=== PATIENT | female | born 1940 | race Caucasian/White ===

== ENCOUNTER 2017-12-13 12:25 | Inpatient (IN) | payer MEDICARE, MEDICAID ==
[~2017-12-13] VITALS: Ht 167.6 cm; Wt 54.0 kg
[~2017-12-13 12:25] MED LIST: CEPH-571 PO; K, MAG and/or Phos replacement - Verify level? MC SCH
[2017-12-13] MEDS ORDERED: HYDROcodone/acetaminophen 10/325mg tab PO ONE ×2 (12:45→18:35)
[2017-12-13] MEDS ORDERED: ondansetron 4mg rapidly disintigrating tab PO ONE (12:45)
[2017-12-13] MEDS ORDERED: aspirin 81mg tab.chew PO ONE (13:30)
[2017-12-13 13:54] LABS: BASOPHILS % (AUTO) 0.1 % (0-1); EOSINOPHILS # (AUTO) 0.2 X10'3 (0-0.9); EOSINOPHILS % (AUTO) 1.2 % (0-6); HEMATOCRIT 44.2 % (35.0-45.0); HEMOGLOBIN 15.1 g/dl (12.0-16.0); LYMPHOCYTES # (AUTO) 0.5 X10'3 (1.1-4.8); LYMPHOCYTES % (AUTO) 3.8 % (21-51); MEAN CORPUSCULAR HEMOGLOBIN 28.8 PG (27.0-31.0); MEAN CORPUSCULAR VOLUME 84.7 FL (78-98); MEAN PLATELET VOLUME 6.6 FL (7.4-10.4); MONOCYTES # (AUTO) 0.4 X10'3 (0-0.9); MONOCYTES % (AUTO) 2.7 % (2-12); NEUTROPHILS % (AUTO) 92.2 % (42-75); PLATELET COUNT 364 X10'3 (140-440); RED BLOOD COUNT 5.22 X10'6 (4.20-5.60); RED CELL DISTRIBUTION WIDTH 15.4 % (11.5-14.5); WHITE BLOOD COUNT 14.1 X10'3 (4.5-11.0)
[2017-12-13] MEDS ORDERED: SYN0.088T PO (14:17)
[2017-12-13] MEDS ORDERED: ESCI5TAB12 PO (14:17)
[2017-12-13] MEDS ORDERED: OMEP40CA37 PO (14:17)
[2017-12-13] MEDS ORDERED: GABA-534 PO (14:17)
[2017-12-13] MEDS ORDERED: PARO20TA6 PO (14:17)
[2017-12-13] MEDS ORDERED: METF500T PO (14:17)
[2017-12-13] MEDS ORDERED: ALPR-624 PO (14:17)
[2017-12-13] MEDS ORDERED: PRAV20TA4 PO (14:17)
[2017-12-13] MEDS ORDERED: ANAS1TAB10 PO (14:17)
[2017-12-13] MEDS ORDERED: LISI-600 PO (14:17)
[2017-12-13 15:19] LABS: ALANINE AMINOTRANSFERASE 19 U/L (12-78); ALBUMIN 4.3 G/DL (3.4-5.0); ALBUMIN/GLOBULIN RATIO 1.1 (1.1-1.5); ALKALINE PHOSPHATASE 78 IU/L (46-116); ANION GAP 13 (8-16); ASPARTATE AMINO TRANSFERASE 28 U/L (10-37); BILIRUBIN,TOTAL 0.5 MG/DL (0.1-1.0); BLOOD UREA NITROGEN 9 MG/DL (7-18); BUN/CREATININE RATIO 10.8 (6.6-38.0); CHLORIDE 90 MMOL/L (99-107); CREATININE 0.83 MG/DL (0.40-0.90); GLUCOSE 153 MG/DL (70-104); MAGNESIUM 1.5 MG/DL (1.5-2.4); POTASSIUM 3.7 MMOL/L (3.5-5.1); SODIUM 130 MMOL/L (135-145); TOTAL CARBON DIOXIDE 27.3 MMOL/L (24-32); TOTAL PROTEIN 8.2 G/DL (6.4-8.2); eGFR 66 ML/MIN
[2017-12-13] MEDS: tirofiban 5mg in NS 100mL 100 ML IV SCH ×2 (16:16→22:24)
[2017-12-13] MEDS ORDERED: nitroGLYCERIN 0.4mg SUBLingual tab SL PRN (17:15)
[2017-12-13] MEDS ORDERED: morphine 2 MG/ML inj. syringe IV PRN ×2 (18:20)
[2017-12-13] MEDS ORDERED: magnesium hydroxide 30ml (MOM) UD suspension PO PRN (18:20)
[2017-12-13] MEDS ORDERED: acetaminophen 325mg tablet PO PRN ×2 (18:20)
[2017-12-13] MEDS ORDERED: potassium Cl 20 mEq SR tablet PO PRN ×2 (18:20)
[2017-12-13] MEDS ORDERED: ondansetron/PF 4mg/2ml inj IV ONE (18:35)
[2017-12-13] MEDS: normal saline 1000ml 1,000 ML IV SCH ×2 (18:50→23:10)
[2017-12-13] MEDS ORDERED: metoprolol tartrate 50mg tablet PO SCH (20:00)
[2017-12-13 20:30] VITALS: BP 116/73
[2017-12-13] MEDS: cephalexin 250mg capsule PO SCH (21:00)
[2017-12-13] MEDS: docusate sod 100mg capsule PO SCH (22:00)
[2017-12-13] MEDS: ondansetron/PF 4mg/2ml inj IV PRN (22:33)
[2017-12-13] MEDS: ALPRAZolam 0.5mg tablet PO SCH (23:11)
[2017-12-13] MEDS: gabapentin 400mg capsule PO SCH (23:11)
[2017-12-14] VITALS (14 sets, daily range): BP systolic 101–148; BP diastolic 51–78
[2017-12-14 01:50] LABS: ALANINE AMINOTRANSFERASE 21 U/L (12-78); ALBUMIN 3.5 G/DL (3.4-5.0); ALBUMIN/GLOBULIN RATIO 1.1 (1.1-1.5); ALKALINE PHOSPHATASE 64 IU/L (46-116); ANION GAP 13 (8-16); ASPARTATE AMINO TRANSFERASE 28 U/L (10-37); BILIRUBIN,TOTAL 0.5 MG/DL (0.1-1.0); BLOOD UREA NITROGEN 13 MG/DL (7-18); BUN/CREATININE RATIO 21.7 (6.6-38.0); CALCIUM 8.4 MG/DL (8.5-10.1); CHLORIDE 91 MMOL/L (99-107); GLUCOSE 126 MG/DL (70-104); POTASSIUM 3.7 MMOL/L (3.5-5.1); SODIUM 127 MMOL/L (135-145); TOTAL CARBON DIOXIDE 22.8 MMOL/L (24-32); TOTAL PROTEIN 6.8 G/DL (6.4-8.2); eGFR > 90 ML/MIN
[2017-12-14 02:13] LABS: BASOPHILS % (AUTO) 0.1 % (0-1); EOSINOPHILS # (AUTO) 0.1 X10'3 (0-0.9); EOSINOPHILS % (AUTO) 0.8 % (0-6); HEMATOCRIT 39.5 % (35.0-45.0); HEMOGLOBIN 13.6 g/dl (12.0-16.0); LYMPHOCYTES # (AUTO) 1.1 X10'3 (1.1-4.8); LYMPHOCYTES % (AUTO) 8.9 % (21-51); MEAN CORPUSCULAR HEMOGLOBIN 28.9 PG (27.0-31.0); MEAN CORPUSCULAR HGB CONC 34.3 % (33.0-36.5); MEAN CORPUSCULAR VOLUME 84.3 FL (78-98); MEAN PLATELET VOLUME 7.6 FL (7.4-10.4); MONOCYTES # (AUTO) 0.7 X10'3 (0-0.9); MONOCYTES % (AUTO) 5.7 % (2-12); NEUTROPHILS # (AUTO) 10.1 X10'3 (1.8-7.7); NEUTROPHILS % (AUTO) 84.5 % (42-75); PLATELET COUNT 300 X10'3 (140-440); RED BLOOD COUNT 4.69 X10'6 (4.20-5.60); RED CELL DISTRIBUTION WIDTH 14.9 % (11.5-14.5)
[2017-12-14] MEDS: ondansetron/PF 4mg/2ml inj IV PRN ×2 (05:41→20:41)
[2017-12-14] MEDS: HYDROcodone/acetaminophen 10/325mg tab PO PRN ×3 (06:29→21:04)
[2017-12-14] MEDS: anastrozole 1 MG tablet PO SCH ×2 (08:00→10:19)
[2017-12-14] MEDS: PARoxetine 20mg tablet PO SCH ×2 (08:00→10:18)
[2017-12-14] MEDS ORDERED: non-formulary drug (Escitalopram Oxalate 1 TAB) PO SCH (08:00)
[2017-12-14] MEDS ORDERED: pantoprazole 40 MG vial IV SCH (08:00)
[2017-12-14 09:52] LABS: CHOLESTEROL 154 MG/DL (0-200); HDL CHOLESTEROL 78 MG/DL (35-60); LDL CHOLESTEROL 65 MG/DL (50-100); TRIGLYCERIDES 76 MG/DL (20-135)
[2017-12-14] MEDS ORDERED: CITALOpram 10mg tablet PO SCH (09:58)
[2017-12-14] MEDS ORDERED: CITALOpram 10mg tablet PO ONE (10:00)
[2017-12-14] MEDS: pantoprazole 40mg Tablet.DR PO SCH (10:13)
[2017-12-14] MEDS: cephalexin 250mg capsule PO SCH ×3 (10:14→20:42)
[2017-12-14] MEDS: docusate sod 100mg capsule PO SCH ×2 (10:14→20:41)
[2017-12-14] MEDS: lisinopril 20mg tablet PO SCH (10:15)
[2017-12-14] MEDS: ALPRAZolam 0.5mg tablet PO SCH ×2 (10:15→16:00)
[2017-12-14] MEDS: atorvastatin 10mg tablet PO SCH (10:15)
[2017-12-14] MEDS: levoTHYROXINE 88mcg tablet PO SCH (10:15)
[2017-12-14] MEDS: aspirin 81mg tab.chew PO SCH (10:16)
[2017-12-14] MEDS: gabapentin 400mg capsule PO SCH ×2 (10:16→16:00)
[2017-12-14] MEDS ORDERED: ondansetron/PF 4mg/2ml inj IV PRN (11:30)
[2017-12-14] MEDS ORDERED: proMETHazine 25mg tablet PO PRN (11:30)
[2017-12-14] MEDS: normal saline 1000ml 1,000 ML IV SCH (11:56)
[2017-12-14] MEDS ORDERED: fentaNYL/PF 50MCG/1 ML 2ML syringe ONE (15:59)
[2017-12-14] MEDS ORDERED: LIDOcaine 1% 30ml vial 30 ML ONE (15:59)
[2017-12-14] MEDS ORDERED: midazolam 2 mg/2 ml injection ONE (15:59)
[2017-12-14] MEDS ORDERED: iohexol 350MG/ML 100ml bottle IV ONE (16:00)
[2017-12-14] MEDS ORDERED: ondansetron/PF 4mg/2ml inj ONE (16:28)
[2017-12-14] MEDS ORDERED: proCHLORperazine 10 MG/2 ml inj IV PRN (17:20)
[2017-12-14] MEDS ORDERED: HYDROcodone/acetaminophen 5mg/325mg tablet PO PRN (17:20)
[2017-12-14] MEDS ORDERED: OXAZEpam 15mg capsule PO PRN (17:20)
[2017-12-14] MEDS: carVEDilol 12.5mg tablet PO SCH (20:42)
[2017-12-14] MEDS: lactobacillus rhamnosus 10,000 MMU CELLS/CAPSULE PO SCH (20:42)
[2017-12-15] MEDS: gabapentin 400mg capsule PO SCH ×3 (00:08→16:11)
[2017-12-15] MEDS: ALPRAZolam 0.5mg tablet PO SCH ×2 (00:09→09:16)
[2017-12-15 03:00] VITALS: BP 93/48
[2017-12-15 05:11] LABS: BASOPHILS % (AUTO) 0.4 % (0-1); EOSINOPHILS # (AUTO) 0.1 X10'3 (0-0.9); EOSINOPHILS % (AUTO) 1.4 % (0-6); HEMATOCRIT 37.7 % (35.0-45.0); LYMPHOCYTES # (AUTO) 0.8 X10'3 (1.1-4.8); LYMPHOCYTES % (AUTO) 7.8 % (21-51); MEAN CORPUSCULAR HGB CONC 34.6 % (33.0-36.5); MEAN CORPUSCULAR VOLUME 83.9 FL (78-98); MEAN PLATELET VOLUME 7.4 FL (7.4-10.4); MONOCYTES # (AUTO) 0.8 X10'3 (0-0.9); MONOCYTES % (AUTO) 7.9 % (2-12); NEUTROPHILS # (AUTO) 8.3 X10'3 (1.8-7.7); NEUTROPHILS % (AUTO) 82.5 % (42-75); PLATELET COUNT 260 X10'3 (140-440); WHITE BLOOD COUNT 10.1 X10'3 (4.5-11.0)
[2017-12-15 05:36] LABS: ALANINE AMINOTRANSFERASE 17 U/L (12-78); ALBUMIN/GLOBULIN RATIO 0.9 (1.1-1.5); ALKALINE PHOSPHATASE 55 IU/L (46-116); ANION GAP 10 (8-16); ASPARTATE AMINO TRANSFERASE 20 U/L (10-37); BILIRUBIN,TOTAL 0.8 MG/DL (0.1-1.0); BLOOD UREA NITROGEN 11 MG/DL (7-18); CALCIUM 8.2 MG/DL (8.5-10.1); CHLORIDE 96 MMOL/L (99-107); CREATININE 0.58 MG/DL (0.40-0.90); GLUCOSE 135 MG/DL (70-104); POTASSIUM 4.1 MMOL/L (3.5-5.1); SODIUM 130 MMOL/L (135-145); TOTAL CARBON DIOXIDE 23.6 MMOL/L (24-32); TOTAL PROTEIN 6.2 G/DL (6.4-8.2); eGFR > 90 ML/MIN
[2017-12-15 06:00] VITALS: BP 119/69
[2017-12-15] MEDS: HYDROcodone/acetaminophen 10/325mg tab PO PRN ×2 (09:00→13:03)
[2017-12-15] MEDS: pantoprazole 40mg Tablet.DR PO SCH (09:12)
[2017-12-15] MEDS: docusate sod 100mg capsule PO SCH ×2 (09:14→21:03)
[2017-12-15] MEDS: CITALOpram 10mg tablet PO SCH (09:14)
[2017-12-15] MEDS: carVEDilol 12.5mg tablet PO SCH ×2 (09:15→20:00)
[2017-12-15] MEDS: cephalexin 250mg capsule PO SCH ×4 (09:15→21:03)
[2017-12-15] MEDS: PARoxetine 20mg tablet PO SCH (09:15)
[2017-12-15] MEDS: lactobacillus rhamnosus 10,000 MMU CELLS/CAPSULE PO SCH ×2 (09:15→21:03)
[2017-12-15] MEDS: levoTHYROXINE 88mcg tablet PO SCH (09:15)
[2017-12-15] MEDS: atorvastatin 10mg tablet PO SCH (09:15)
[2017-12-15] MEDS: lisinopril 20mg tablet PO SCH (09:16)
[2017-12-15] MEDS: aspirin 81mg tab.chew PO SCH (09:16)
[2017-12-15] MEDS: anastrozole 1 MG tablet PO SCH (09:19)
[2017-12-15] MEDS: normal saline 1000ml 1,000 ML IV SCH ×2 (10:16→11:55)
[2017-12-15 15:16] VITALS: BP 88/58
[2017-12-15] MEDS ORDERED: ALPRAZolam 0.25mg tablet PO PRN (15:30)
[2017-12-15 19:00] VITALS: BP 102/57
[2017-12-15 23:00] VITALS: BP 103/53
[2017-12-16] VITALS (7 sets, daily range): BP systolic 93–124; BP diastolic 46–70
[2017-12-16] MEDS: gabapentin 400mg capsule PO SCH ×3 (00:30→17:01)
[2017-12-16 05:28] LABS: BASOPHILS % (AUTO) 0.2 % (0-1); EOSINOPHILS # (AUTO) 0.2 X10'3 (0-0.9); EOSINOPHILS % (AUTO) 2.5 % (0-6); HEMATOCRIT 35.4 % (35.0-45.0); HEMOGLOBIN 11.8 g/dl (12.0-16.0); LYMPHOCYTES # (AUTO) 0.6 X10'3 (1.1-4.8); LYMPHOCYTES % (AUTO) 8.3 % (21-51); MEAN CORPUSCULAR HEMOGLOBIN 28.4 PG (27.0-31.0); MEAN CORPUSCULAR HGB CONC 33.5 % (33.0-36.5); MEAN CORPUSCULAR VOLUME 84.7 FL (78-98); MEAN PLATELET VOLUME 7.5 FL (7.4-10.4); MONOCYTES # (AUTO) 0.6 X10'3 (0-0.9); MONOCYTES % (AUTO) 8.2 % (2-12); NEUTROPHILS # (AUTO) 6.2 X10'3 (1.8-7.7); NEUTROPHILS % (AUTO) 80.8 % (42-75); PLATELET COUNT 217 X10'3 (140-440); RED BLOOD COUNT 4.17 X10'6 (4.20-5.60); RED CELL DISTRIBUTION WIDTH 15.1 % (11.5-14.5); WHITE BLOOD COUNT 7.7 X10'3 (4.5-11.0)
[2017-12-16 05:59] LABS: ALANINE AMINOTRANSFERASE 16 U/L (12-78); ALBUMIN 2.4 G/DL (3.4-5.0); ALBUMIN/GLOBULIN RATIO 0.8 (1.1-1.5); ALKALINE PHOSPHATASE 53 IU/L (46-116); ANION GAP 8 (8-16); ASPARTATE AMINO TRANSFERASE 18 U/L (10-37); BILIRUBIN,TOTAL 0.5 MG/DL (0.1-1.0); BLOOD UREA NITROGEN 11 MG/DL (7-18); BUN/CREATININE RATIO 17.7 (6.6-38.0); CALCIUM 7.8 MG/DL (8.5-10.1); CHLORIDE 99 MMOL/L (99-107); CREATININE 0.62 MG/DL (0.40-0.90); GLUCOSE 142 MG/DL (70-104); POTASSIUM 4.1 MMOL/L (3.5-5.1); SODIUM 132 MMOL/L (135-145); TOTAL CARBON DIOXIDE 24.9 MMOL/L (24-32); TOTAL PROTEIN 5.6 G/DL (6.4-8.2); eGFR > 90 ML/MIN
[2017-12-16] MEDS: cephalexin 250mg capsule PO SCH ×4 (09:14→21:00)
[2017-12-16] MEDS: docusate sod 100mg capsule PO SCH ×3 (09:15→21:01)
[2017-12-16] MEDS: PARoxetine 20mg tablet PO SCH (09:15)
[2017-12-16] MEDS: levoTHYROXINE 88mcg tablet PO SCH (09:15)
[2017-12-16] MEDS: lisinopril 20mg tablet PO SCH (09:16)
[2017-12-16] MEDS: CITALOpram 10mg tablet PO SCH (09:16)
[2017-12-16] MEDS: carVEDilol 12.5mg tablet PO SCH ×2 (09:16→21:00)
[2017-12-16] MEDS: lactobacillus rhamnosus 10,000 MMU CELLS/CAPSULE PO SCH ×2 (09:16→21:01)
[2017-12-16] MEDS: aspirin 81mg tab.chew PO SCH (09:16)
[2017-12-16] MEDS: atorvastatin 10mg tablet PO SCH (09:17)
[2017-12-16] MEDS: anastrozole 1 MG tablet PO SCH (09:17)
[2017-12-16] MEDS: pantoprazole 40mg Tablet.DR PO SCH (09:24)
[2017-12-16] MEDS: HYDROcodone/acetaminophen 10/325mg tab PO PRN ×3 (09:55→21:04)
[2017-12-16] MEDS: normal saline 1000ml 1,000 ML IV SCH (13:33)
[2017-12-16] MEDS ORDERED: magnesium citrate 296ml oral solution PO ONE (17:05)
[2017-12-16] MEDS ORDERED: morphine 4 MG/ML inj SYRINge IV PRN ×2 (21:55→21:56)
[2017-12-17] VITALS (7 sets, daily range): BP systolic 80–148; BP diastolic 41–83
[2017-12-17] MEDS: gabapentin 400mg capsule PO SCH ×4 (00:33→23:22)
[2017-12-17] MEDS: normal saline 1000ml 1,000 ML IV SCH ×2 (00:35→15:54)
[2017-12-17 05:27] LABS: BASOPHILS % (AUTO) 0.3 % (0-1); EOSINOPHILS # (AUTO) 0.3 X10'3 (0-0.9); EOSINOPHILS % (AUTO) 3.8 % (0-6); HEMATOCRIT 32.2 % (35.0-45.0); HEMOGLOBIN 10.9 g/dl (12.0-16.0); LYMPHOCYTES # (AUTO) 0.5 X10'3 (1.1-4.8); LYMPHOCYTES % (AUTO) 6.1 % (21-51); MEAN CORPUSCULAR HEMOGLOBIN 28.6 PG (27.0-31.0); MEAN CORPUSCULAR HGB CONC 33.9 % (33.0-36.5); MEAN CORPUSCULAR VOLUME 84.4 FL (78-98); MEAN PLATELET VOLUME 7.4 FL (7.4-10.4); MONOCYTES # (AUTO) 0.5 X10'3 (0-0.9); MONOCYTES % (AUTO) 6.6 % (2-12); NEUTROPHILS # (AUTO) 6.9 X10'3 (1.8-7.7); NEUTROPHILS % (AUTO) 83.2 % (42-75); PLATELET COUNT 216 X10'3 (140-440); RED BLOOD COUNT 3.82 X10'6 (4.20-5.60); RED CELL DISTRIBUTION WIDTH 15.1 % (11.5-14.5); WHITE BLOOD COUNT 8.3 X10'3 (4.5-11.0)
[2017-12-17 05:55] LABS: ALANINE AMINOTRANSFERASE 17 U/L (12-78); ALBUMIN 2.3 G/DL (3.4-5.0); ALBUMIN/GLOBULIN RATIO 0.8 (1.1-1.5); ALKALINE PHOSPHATASE 59 IU/L (46-116); ANION GAP 10 (8-16); ASPARTATE AMINO TRANSFERASE 18 U/L (10-37); BILIRUBIN,TOTAL 0.6 MG/DL (0.1-1.0); BLOOD UREA NITROGEN 11 MG/DL (7-18); BUN/CREATININE RATIO 19.3 (6.6-38.0); CALCIUM 7.8 MG/DL (8.5-10.1); CHLORIDE 98 MMOL/L (99-107); CREATININE 0.57 MG/DL (0.40-0.90); GLUCOSE 137 MG/DL (70-104); POTASSIUM 4.4 MMOL/L (3.5-5.1); SODIUM 132 MMOL/L (135-145); TOTAL CARBON DIOXIDE 23.9 MMOL/L (24-32); TOTAL PROTEIN 5.3 G/DL (6.4-8.2); eGFR > 90 ML/MIN
[2017-12-17] MEDS: aspirin 81mg tab.chew PO SCH (07:51)
[2017-12-17] MEDS: atorvastatin 10mg tablet PO SCH (07:51)
[2017-12-17] MEDS: pantoprazole 40mg Tablet.DR PO SCH (07:51)
[2017-12-17] MEDS: carVEDilol 12.5mg tablet PO SCH ×2 (07:51→19:09)
[2017-12-17] MEDS: CITALOpram 10mg tablet PO SCH (07:51)
[2017-12-17] MEDS: levoTHYROXINE 88mcg tablet PO SCH (07:51)
[2017-12-17] MEDS: PARoxetine 20mg tablet PO SCH (07:52)
[2017-12-17] MEDS: lactobacillus rhamnosus 10,000 MMU CELLS/CAPSULE PO SCH ×2 (07:52→19:09)
[2017-12-17] MEDS: cephalexin 250mg capsule PO SCH ×4 (07:52→19:09)
[2017-12-17] MEDS: lisinopril 20mg tablet PO SCH (07:52)
[2017-12-17] MEDS: docusate sod 100mg capsule PO SCH ×2 (08:00→19:09)
[2017-12-17] MEDS: HYDROcodone/acetaminophen 10/325mg tab PO PRN ×4 (08:01→23:22)
[2017-12-17] MEDS: anastrozole 1 MG tablet PO SCH (08:05)
[2017-12-18 03:00] VITALS: BP 110/65
[2017-12-18] MEDS: normal saline 1000ml 1,000 ML IV SCH ×2 (04:25→23:57)
[2017-12-18 05:41] LABS: BASOPHILS % (AUTO) 0.5 % (0-1); EOSINOPHILS # (AUTO) 0.4 X10'3 (0-0.9); EOSINOPHILS % (AUTO) 5.9 % (0-6); HEMATOCRIT 31.1 % (35.0-45.0); HEMOGLOBIN 10.7 g/dl (12.0-16.0); LYMPHOCYTES # (AUTO) 0.7 X10'3 (1.1-4.8); LYMPHOCYTES % (AUTO) 9.5 % (21-51); MEAN CORPUSCULAR HGB CONC 34.3 % (33.0-36.5); MEAN CORPUSCULAR VOLUME 84.5 FL (78-98); MEAN PLATELET VOLUME 7.4 FL (7.4-10.4); MONOCYTES # (AUTO) 0.6 X10'3 (0-0.9); MONOCYTES % (AUTO) 8.9 % (2-12); NEUTROPHILS # (AUTO) 5.3 X10'3 (1.8-7.7); NEUTROPHILS % (AUTO) 75.2 % (42-75); PLATELET COUNT 256 X10'3 (140-440); RED BLOOD COUNT 3.68 X10'6 (4.20-5.60); RED CELL DISTRIBUTION WIDTH 15.1 % (11.5-14.5); WHITE BLOOD COUNT 7.1 X10'3 (4.5-11.0)
[2017-12-18 06:06] LABS: ALANINE AMINOTRANSFERASE 21 U/L (12-78); ALBUMIN 2.2 G/DL (3.4-5.0); ALBUMIN/GLOBULIN RATIO 0.7 (1.1-1.5); ALKALINE PHOSPHATASE 57 IU/L (46-116); ANION GAP 9 (8-16); ASPARTATE AMINO TRANSFERASE 14 U/L (10-37); BILIRUBIN,TOTAL 0.4 MG/DL (0.1-1.0); BLOOD UREA NITROGEN 10 MG/DL (7-18); BUN/CREATININE RATIO 16.9 (6.6-38.0); CALCIUM 7.7 MG/DL (8.5-10.1); CHLORIDE 101 MMOL/L (99-107); CREATININE 0.59 MG/DL (0.40-0.90); GLUCOSE 119 MG/DL (70-104); POTASSIUM 4.4 MMOL/L (3.5-5.1); SODIUM 133 MMOL/L (135-145); TOTAL PROTEIN 5.2 G/DL (6.4-8.2); eGFR > 90 ML/MIN
[2017-12-18 06:53] VITALS: BP 93/58
[2017-12-18] MEDS: levoTHYROXINE 88mcg tablet PO SCH (07:55)
[2017-12-18] MEDS: PARoxetine 20mg tablet PO SCH (07:55)
[2017-12-18] MEDS: pantoprazole 40mg Tablet.DR PO SCH (07:56)
[2017-12-18] MEDS: docusate sod 100mg capsule PO SCH ×2 (07:56→19:18)
[2017-12-18] MEDS: cephalexin 250mg capsule PO SCH ×4 (07:56→23:18)
[2017-12-18] MEDS: atorvastatin 10mg tablet PO SCH (07:56)
[2017-12-18] MEDS: lactobacillus rhamnosus 10,000 MMU CELLS/CAPSULE PO SCH ×2 (07:56→19:18)
[2017-12-18] MEDS: aspirin 81mg tab.chew PO SCH (07:56)
[2017-12-18] MEDS: CITALOpram 10mg tablet PO SCH (07:56)
[2017-12-18] MEDS: lisinopril 20mg tablet PO SCH (07:57)
[2017-12-18] MEDS: carVEDilol 12.5mg tablet PO SCH ×2 (07:59→20:00)
[2017-12-18] MEDS: HYDROcodone/acetaminophen 10/325mg tab PO PRN ×3 (08:04→23:31)
[2017-12-18] MEDS: gabapentin 400mg capsule PO SCH ×3 (08:04→23:20)
[2017-12-18] MEDS: anastrozole 1 MG tablet PO SCH (08:05)
[2017-12-18 11:00] VITALS: BP 127/78
[2017-12-18 15:00] VITALS: BP 157/82
[2017-12-18] MEDS: ondansetron/PF 4mg/2ml inj IV PRN (17:50)
[2017-12-18 18:00] VITALS: BP 146/85
[2017-12-18 22:00] VITALS: BP 144/81
[2017-12-19 02:00] VITALS: BP 121/67
[2017-12-19 05:39] LABS: BASOPHILS % (AUTO) 0.3 % (0-1); EOSINOPHILS # (AUTO) 0.2 X10'3 (0-0.9); HEMATOCRIT 33.4 % (35.0-45.0); HEMOGLOBIN 11.1 g/dl (12.0-16.0); LYMPHOCYTES # (AUTO) 0.7 X10'3 (1.1-4.8); MEAN CORPUSCULAR HEMOGLOBIN 28.2 PG (27.0-31.0); MEAN CORPUSCULAR HGB CONC 33.2 % (33.0-36.5); MEAN CORPUSCULAR VOLUME 84.9 FL (78-98); MEAN PLATELET VOLUME 7.3 FL (7.4-10.4); MONOCYTES # (AUTO) 0.7 X10'3 (0-0.9); MONOCYTES % (AUTO) 9.1 % (2-12); NEUTROPHILS # (AUTO) 6.5 X10'3 (1.8-7.7); NEUTROPHILS % (AUTO) 79.6 % (42-75); PLATELET COUNT 324 X10'3 (140-440); RED BLOOD COUNT 3.94 X10'6 (4.20-5.60); WHITE BLOOD COUNT 8.2 X10'3 (4.5-11.0)
[2017-12-19 06:00] VITALS: BP 140/82
[2017-12-19 06:22] LABS: ALANINE AMINOTRANSFERASE 19 U/L (12-78); ALBUMIN 2.3 G/DL (3.4-5.0); ALBUMIN/GLOBULIN RATIO 0.7 (1.1-1.5); ALKALINE PHOSPHATASE 65 IU/L (46-116); ANION GAP 9 (8-16); ASPARTATE AMINO TRANSFERASE 18 U/L (10-37); BILIRUBIN,TOTAL 0.4 MG/DL (0.1-1.0); BLOOD UREA NITROGEN 7 MG/DL (7-18); BUN/CREATININE RATIO 12.5 (6.6-38.0); CALCIUM 7.9 MG/DL (8.5-10.1); CHLORIDE 100 MMOL/L (99-107); CREATININE 0.56 MG/DL (0.40-0.90); GLUCOSE 133 MG/DL (70-104); SODIUM 133 MMOL/L (135-145); TOTAL PROTEIN 5.4 G/DL (6.4-8.2); eGFR > 90 ML/MIN
[2017-12-19] MEDS: normal saline 1000ml 1,000 ML IV SCH ×2 (07:36→13:46)
[2017-12-19] MEDS: docusate sod 100mg capsule PO SCH ×2 (08:00→20:12)
[2017-12-19] MEDS: aspirin 81mg tab.chew PO SCH (09:24)
[2017-12-19] MEDS: HYDROcodone/acetaminophen 10/325mg tab PO PRN ×3 (09:24→23:34)
[2017-12-19] MEDS: lactobacillus rhamnosus 10,000 MMU CELLS/CAPSULE PO SCH ×2 (09:24→20:12)
[2017-12-19] MEDS: cephalexin 250mg capsule PO SCH ×4 (09:24→20:12)
[2017-12-19] MEDS: atorvastatin 10mg tablet PO SCH (09:24)
[2017-12-19] MEDS: pantoprazole 40mg Tablet.DR PO SCH (09:24)
[2017-12-19] MEDS: levoTHYROXINE 88mcg tablet PO SCH (09:24)
[2017-12-19] MEDS: PARoxetine 20mg tablet PO SCH (09:25)
[2017-12-19] MEDS: lisinopril 20mg tablet PO SCH (09:25)
[2017-12-19] MEDS: CITALOpram 10mg tablet PO SCH (09:25)
[2017-12-19] MEDS: carVEDilol 12.5mg tablet PO SCH ×2 (09:25→20:12)
[2017-12-19] MEDS: anastrozole 1 MG tablet PO SCH (09:27)
[2017-12-19] MEDS: gabapentin 400mg capsule PO SCH ×3 (09:27→23:34)
[2017-12-19 11:00] VITALS: BP 117/65
[2017-12-19] MEDS: ondansetron/PF 4mg/2ml inj IV PRN (15:09)
[2017-12-19 18:00] VITALS: BP 117/67
[2017-12-19 22:00] VITALS: BP 133/38
[2017-12-20 02:00] VITALS: BP 163/82
[2017-12-20] MEDS: normal saline 1000ml 1,000 ML IV SCH (06:03)
[2017-12-20 06:18] LABS: BASOPHILS % (AUTO) 0.5 % (0-1); EOSINOPHILS # (AUTO) 0.2 X10'3 (0-0.9); EOSINOPHILS % (AUTO) 2.5 % (0-6); HEMOGLOBIN 10.9 g/dl (12.0-16.0); LYMPHOCYTES # (AUTO) 0.4 X10'3 (1.1-4.8); LYMPHOCYTES % (AUTO) 5.7 % (21-51); MEAN CORPUSCULAR HEMOGLOBIN 28.6 PG (27.0-31.0); MEAN CORPUSCULAR VOLUME 84.1 FL (78-98); MEAN PLATELET VOLUME 7.2 FL (7.4-10.4); MONOCYTES # (AUTO) 0.5 X10'3 (0-0.9); MONOCYTES % (AUTO) 6.7 % (2-12); NEUTROPHILS # (AUTO) 6.6 X10'3 (1.8-7.7); NEUTROPHILS % (AUTO) 84.6 % (42-75); PLATELET COUNT 324 X10'3 (140-440); RED CELL DISTRIBUTION WIDTH 15.1 % (11.5-14.5); WHITE BLOOD COUNT 7.8 X10'3 (4.5-11.0)
[2017-12-20 06:36] LABS: ALANINE AMINOTRANSFERASE 24 U/L (12-78); ALBUMIN 2.2 G/DL (3.4-5.0); ALBUMIN/GLOBULIN RATIO 0.7 (1.1-1.5); ALKALINE PHOSPHATASE 69 IU/L (46-116); ANION GAP 7 (8-16); ASPARTATE AMINO TRANSFERASE 20 U/L (10-37); BILIRUBIN,TOTAL 0.4 MG/DL (0.1-1.0); BLOOD UREA NITROGEN 7 MG/DL (7-18); BUN/CREATININE RATIO 12.5 (6.6-38.0); CALCIUM 7.8 MG/DL (8.5-10.1); CHLORIDE 101 MMOL/L (99-107); CREATININE 0.56 MG/DL (0.40-0.90); GLUCOSE 176 MG/DL (70-104); POTASSIUM 4.1 MMOL/L (3.5-5.1); SODIUM 132 MMOL/L (135-145); TOTAL CARBON DIOXIDE 23.7 MMOL/L (24-32); TOTAL PROTEIN 5.3 G/DL (6.4-8.2); eGFR > 90 ML/MIN
[2017-12-20] MEDS: docusate sod 100mg capsule PO SCH ×2 (08:00→21:24)
[2017-12-20] MEDS: aspirin 81mg tab.chew PO SCH (08:35)
[2017-12-20] MEDS: gabapentin 400mg capsule PO SCH ×2 (08:35→16:08)
[2017-12-20] MEDS: cephalexin 250mg capsule PO SCH ×4 (08:35→21:23)
[2017-12-20] MEDS: atorvastatin 10mg tablet PO SCH (08:35)
[2017-12-20] MEDS: lactobacillus rhamnosus 10,000 MMU CELLS/CAPSULE PO SCH ×2 (08:35→21:23)
[2017-12-20] MEDS: pantoprazole 40mg Tablet.DR PO SCH (08:35)
[2017-12-20] MEDS: CITALOpram 10mg tablet PO SCH (08:35)
[2017-12-20] MEDS: carVEDilol 12.5mg tablet PO SCH ×2 (08:35→21:24)
[2017-12-20] MEDS: lisinopril 20mg tablet PO SCH (08:35)
[2017-12-20] MEDS: anastrozole 1 MG tablet PO SCH (08:36)
[2017-12-20] MEDS: PARoxetine 20mg tablet PO SCH (08:36)
[2017-12-20] MEDS: levoTHYROXINE 88mcg tablet PO SCH (08:36)
[2017-12-20] MEDS: HYDROcodone/acetaminophen 10/325mg tab PO PRN ×3 (08:45→21:25)
[2017-12-20 09:19] VITALS: BP 136/80
[2017-12-20 15:00] VITALS: BP 119/72
[2017-12-20 19:00] VITALS: BP 152/98
[2017-12-20 23:00] VITALS: BP 142/79
[2017-12-21] MEDS: gabapentin 400mg capsule PO SCH ×2 (01:14→08:29)
[2017-12-21] MEDS: HYDROcodone/acetaminophen 10/325mg tab PO PRN ×3 (01:28→14:21)
[2017-12-21 03:00] VITALS: BP 141/88
[2017-12-21 05:21] LABS: BASOPHILS % (AUTO) 0.4 % (0-1); EOSINOPHILS # (AUTO) 0.4 X10'3 (0-0.9); EOSINOPHILS % (AUTO) 4.3 % (0-6); HEMATOCRIT 33.9 % (35.0-45.0); HEMOGLOBIN 11.4 g/dl (12.0-16.0); LYMPHOCYTES # (AUTO) 0.6 X10'3 (1.1-4.8); LYMPHOCYTES % (AUTO) 7.3 % (21-51); MEAN CORPUSCULAR HEMOGLOBIN 28.3 PG (27.0-31.0); MEAN CORPUSCULAR HGB CONC 33.6 % (33.0-36.5); MEAN CORPUSCULAR VOLUME 84.3 FL (78-98); MEAN PLATELET VOLUME 7.3 FL (7.4-10.4); MONOCYTES # (AUTO) 0.8 X10'3 (0-0.9); MONOCYTES % (AUTO) 9.7 % (2-12); NEUTROPHILS # (AUTO) 6.6 X10'3 (1.8-7.7); NEUTROPHILS % (AUTO) 78.3 % (42-75); PLATELET COUNT 370 X10'3 (140-440); RED BLOOD COUNT 4.02 X10'6 (4.20-5.60); RED CELL DISTRIBUTION WIDTH 15.1 % (11.5-14.5); WHITE BLOOD COUNT 8.4 X10'3 (4.5-11.0)
[2017-12-21 05:51] LABS: ALANINE AMINOTRANSFERASE 21 U/L (12-78); ALBUMIN 2.3 G/DL (3.4-5.0); ALBUMIN/GLOBULIN RATIO 0.7 (1.1-1.5); ALKALINE PHOSPHATASE 69 IU/L (46-116); ANION GAP 10 (8-16); ASPARTATE AMINO TRANSFERASE 15 U/L (10-37); BILIRUBIN,TOTAL 0.4 MG/DL (0.1-1.0); BLOOD UREA NITROGEN 7 MG/DL (7-18); BUN/CREATININE RATIO 12.5 (6.6-38.0); CALCIUM 7.9 MG/DL (8.5-10.1); CHLORIDE 100 MMOL/L (99-107); CREATININE 0.56 MG/DL (0.40-0.90); GLUCOSE 134 MG/DL (70-104); POTASSIUM 4.2 MMOL/L (3.5-5.1); SODIUM 134 MMOL/L (135-145); TOTAL CARBON DIOXIDE 24.4 MMOL/L (24-32); TOTAL PROTEIN 5.4 G/DL (6.4-8.2); eGFR > 90 ML/MIN
[2017-12-21 06:39] VITALS: BP 101/60
[2017-12-21] MEDS ORDERED: enoxaparin 40mg/0.4ml syringe SUBCUT SCH (08:00)
[2017-12-21] MEDS: aspirin 81mg tab.chew PO SCH (08:11)
[2017-12-21] MEDS: CITALOpram 10mg tablet PO SCH (08:11)
[2017-12-21] MEDS: cephalexin 250mg capsule PO SCH (08:11)
[2017-12-21] MEDS: carVEDilol 12.5mg tablet PO SCH (08:12)
[2017-12-21] MEDS: levoTHYROXINE 88mcg tablet PO SCH (08:12)
[2017-12-21] MEDS: PARoxetine 20mg tablet PO SCH (08:12)
[2017-12-21] MEDS: docusate sod 100mg capsule PO SCH (08:12)
[2017-12-21] MEDS: atorvastatin 10mg tablet PO SCH (08:12)
[2017-12-21] MEDS: lactobacillus rhamnosus 10,000 MMU CELLS/CAPSULE PO SCH (08:12)
[2017-12-21] MEDS: pantoprazole 40mg Tablet.DR PO SCH (08:12)
[2017-12-21] MEDS: lisinopril 20mg tablet PO SCH (08:14)
[2017-12-21] MEDS: anastrozole 1 MG tablet PO SCH (08:14)
[2017-12-21 08:29] LABS: HEMOGLOBIN A1C 6.2 % (4.5-6.2)
[2017-12-21 11:00] VITALS: BP 138/73
== END 2017-12-21 15:17 | DRG 286 ==
LOC: ER 12:26 → PCU 3S 20:14 → CMPBEDREQ 12-15 19:43
PROVIDERS: ADMIT Internal Medicine; ATTEND Family Medicine
PROC: 4A023N7 Measurement of Cardiac Sampling and Pressure, Left Heart, Percutaneous Approach (ICD-10-PCS; principal; 2017-12-14)
PROC: B2111ZZ Fluoroscopy of Multiple Coronary Arteries using Low Osmolar Contrast (ICD-10-PCS; 2017-12-14)
PROC: B2151ZZ Fluoroscopy of Left Heart using Low Osmolar Contrast (ICD-10-PCS; 2017-12-14)
DX: I51.81 Takotsubo syndrome (principal); I50.41 Acute combined systolic (congestive) and diastolic (congestive) heart failure; I95.9 Hypotension, unspecified; R13.10 Dysphagia, unspecified; S22.42XA Multiple fractures of ribs, left side, initial encounter for closed fracture; E11.9 Type 2 diabetes mellitus without complications; Z68.1 Body mass index [BMI] 19.9 or less, adult; F10.21 Alcohol dependence, in remission; I25.10 Atherosclerotic heart disease of native coronary artery without angina pectoris; H91.90 Unspecified hearing loss, unspecified ear; I10 Essential (primary) hypertension; K59.00 Constipation, unspecified; F41.9 Anxiety disorder, unspecified; W01.0XXA Fall on same level from slipping, tripping and stumbling without subsequent striking against object, initial encounter; R29.6 Repeated falls; Z98.1 Arthrodesis status; Z90.13 Acquired absence of bilateral breasts and nipples; Z88.0 Allergy status to penicillin; Z79.899 Other long term (current) drug therapy; Z79.01 Long term (current) use of anticoagulants; Z79.82 Long term (current) use of aspirin; Z79.84 Long term (current) use of oral hypoglycemic drugs; Z92.3 Personal history of irradiation; Z85.3 Personal history of malignant neoplasm of breast; Z85.819 Personal history of malignant neoplasm of unspecified site of lip, oral cavity, and pharynx; Z87.891 Personal history of nicotine dependence; Y93.89 Activity, other specified; Y92.89 Other specified places as the place of occurrence of the external cause; Y99.8 Other external cause status
CPT/HCPCS: 36415; 71045; 71046; 71100; 80053; 80061; 82948; 83036; 83735; 83880; 84484; 85025; 87070; 92616; 93005; 93306; 93458; 96374; 97110; 97116; 97162; 97530; 99152; 99285; A4315; A4620; A6257; A6258; C1769; J1644; J1650; J2250; J2270; J2405; J3010; J3246; J3490; J7030; Q0169; Q9967